=== PATIENT | female | born 1985 | race Caucasian/White ===

== ENCOUNTER 2018-11-28 17:42 | Inpatient (IN) | payer BC, OTHER ==
[~2018-11-28] VITALS: Ht 162.6 cm; Wt 97.2 kg
[~2018-11-28 17:42] MED LIST: ALBU8.5H5 INH; IBUP-1222 PO; OXYC-302 PO; PREN1TAB56 PO
[2018-11-28 18:45] LABS: BASOPHILS % (AUTO) 0 % (0-1); EOSINOPHILS # (AUTO) 0.05 x10^3/uL (0-0.4); EOSINOPHILS % (AUTO) 1 % (1-7); LYMPHOCYTES # (AUTO) 1.09 x10^3/uL (1-3.4); LYMPHOCYTES % (AUTO) 10 % (22-44); MD NO; MEAN CORPUSCULAR HEMOGLOBIN 31.8 pg (27.0-34.8); MEAN CORPUSCULAR HGB CONC 34.4 g/dL (32.4-35.8); MEAN CORPUSCULAR VOLUME 92.6 fL (80-100); MEAN PLATELET VOLUME 8.4 fL (7.4-10.4); MONOCYTES # (AUTO) 1.22 x10^3/uL (0.2-0.8); MONOCYTES % (AUTO) 11 % (2-9); NEUTROPHILS # (AUTO) 8.38 x10^3/uL (1.8-6.8); NEUTROPHILS % (AUTO) 78 % (42-75); PLATELET COUNT 234 x10^3/uL (130-400); RED BLOOD COUNT 4.47 x10^6/uL (3.82-5.3)
[2018-11-28] MEDS ORDERED: SUMA25TA3 PO (18:45)
--- NOTE | 2018-11-28 18:45 | NUR ---
PT HERE FOR RLQ PAIN WITH N/V SINCE SATURDAY. UA SENT TO LAB. VSS BUT HR ELEVATED. PIV PLACED FOR CT. CALL LIGHT IN REACH
[2018-11-28 18:51] LABS: ANION GAP 9 mmol/L (5-15); CALCIUM 8.3 mg/dL (8.5-10.1); CHLORIDE 106 mmol/L (98-107); CREATININE 0.52 mg/dL (0.55-1.02)
[2018-11-28 18:52] LABS: ALANINE AMINOTRANSFERASE 22 U/L (12-78); ALBUMIN 3.3 g/dL (3.4-5.0)
--- NOTE | 2018-11-28 18:52 | NUR ---
REPORT RECEIVED FROM AUSTYN LÓPEZ.
[2018-11-28 18:54] LABS: MICROSCOPIC NOT IND
[2018-11-28 18:56] LABS: ALKALINE PHOSPHATASE 54 U/L (45-117); BILIRUBIN,TOTAL 0.7 mg/dL (0.2-1.0); TOTAL PROTEIN 7.2 g/dL (6.4-8.2)
[2018-11-28 19:07] LABS: CULTURE INDICATED? NO
--- NOTE | 2018-11-28 19:46 | NUR ---
PT BACK TO ROOM FROM CT. PT DENIES ANY NEEDS AND CONCERNS AT THIS TIME.
[2018-11-28] MEDS ORDERED: CIPROFLOXACIN/PMX 400MG/200ML 200 ML ONE (20:22)
[2018-11-28] MEDS ORDERED: METRONIDAZOLE PMX 500MG/100ML 100 ML ONE (20:22)
[2018-11-28] MEDS ORDERED: CIPROFLOXACIN/PMX 400MG/200ML 200 ML IV ONE (20:30)
[2018-11-28] MEDS ORDERED: METRONIDAZOLE PMX 500MG/100ML 100 ML IV ONE (20:30)
--- NOTE | 2018-11-28 20:30 | NUR ---
ABX INFUSING AT THIS TIME. PT TOLERATED WELL.
[2018-11-28] MEDS ORDERED: SODIUM CHLORIDE 0.9% 1,000 ML IV ONE (21:11)
[2018-11-28] MEDS ORDERED: ONDANSETRON 2MG/ML, 2ML IVPush PRN ×2 (21:30→23:30)
[2018-11-28] MEDS ORDERED: MORPHINE SULFATE 4 MG/ML, 1ML IVPush PRN (21:30)
--- NOTE | 2018-11-28 21:45 | NUR ---
MS INFUSING AT THIS TIME. PT TOLERATED WELL.
--- NOTE | 2018-11-28 21:50 | NUR ---
REPORT GIVEN TO ROCIO LÓPEZ. ALL QUESTIONS ANSWERED.
[2018-11-28] MEDS ORDERED: POTASSIUM CHLORIDE 20 MEQ TAB.ER.PRT PO ONE (23:30)
[2018-11-28] MEDS ORDERED: LIDODERM 5% PATCH TD PRN (23:30)
[2018-11-28] MEDS ORDERED: ACETAMINOPHEN 325 MG TABLET PO PRN (23:30)
[2018-11-28] MEDS ORDERED: BISACODYL 10 MG SUPP PR PRN (23:30)
[2018-11-28] MEDS ORDERED: LORazepam 2 MG/ML, 1ML IVPush ONE (23:30)
[2018-11-28] MEDS ORDERED: ENALAPRILAT 1.25 MG/ML, 2ML IVPush PRN (23:30)
[2018-11-28] MEDS: METRONIDAZOLE PMX 500MG/100ML 100 ML IV SCH (23:59)
[2018-11-29 00:07] VITALS: BP 108/75
[2018-11-29 02:35] VITALS: BP 100/68
[2018-11-29 05:29] LABS: BASOPHILS # (AUTO) 0.01 x10^3/uL (0-0.1); BASOPHILS % (AUTO) 0 % (0-1); EOSINOPHILS % (AUTO) 1 % (1-7); LYMPHOCYTES # (AUTO) 1.41 x10^3/uL (1-3.4); LYMPHOCYTES % (AUTO) 15 % (22-44); MD NO; MEAN CORPUSCULAR HEMOGLOBIN 30.8 pg (27.0-34.8); MEAN CORPUSCULAR HGB CONC 33.4 g/dL (32.4-35.8); MEAN CORPUSCULAR VOLUME 92.1 fL (80-100); MEAN PLATELET VOLUME 8.1 fL (7.4-10.4); MONOCYTES % (AUTO) 12 % (2-9); NEUTROPHILS # (AUTO) 6.77 x10^3/uL (1.8-6.8); NEUTROPHILS % (AUTO) 72 % (42-75); PLATELET COUNT 211 x10^3/uL (130-400); RED BLOOD COUNT 4.18 x10^6/uL (3.82-5.3); RED CELL DISTRIBUTION WIDTH 13.3 % (9.6-15.2)
[2018-11-29] MEDS: METRONIDAZOLE PMX 500MG/100ML 100 ML IV SCH ×4 (05:37→23:31)
[2018-11-29 05:47] LABS: CHLORIDE 107 mmol/L (98-107)
[2018-11-29 05:55] LABS: ANION GAP 7 mmol/L (5-15); CREATININE 0.62 mg/dL (0.55-1.02)
[2018-11-29] MEDS ORDERED: OMNIPAQUE 350 MG/ML, 100ML BOTTLE ONE (06:43)
[2018-11-29 06:45] VITALS: BP 102/69
[2018-11-29] MEDS: CIPROFLOXACIN/PMX 400MG/200ML 200 ML IV SCH ×2 (07:38→20:13)
[2018-11-29] MEDS ORDERED: SUMATRIPTAN 25 MG TABLET PO SCH (09:00)
[2018-11-29] MEDS ORDERED: SUMATRIPTAN 25 MG TABLET PO PRN (12:00)
[2018-11-29 12:35] VITALS: BP 106/71
[2018-11-29 19:40] VITALS: BP 99/64
[2018-11-29] MEDS: TEMAZEPAM 15 MG CAPSULE PO PRN (22:11)
[2018-11-30 00:49] VITALS: BP 119/66
[2018-11-30] MEDS: METRONIDAZOLE PMX 500MG/100ML 100 ML IV SCH ×4 (05:44→23:40)
[2018-11-30 07:19] VITALS: BP 111/72
[2018-11-30] MEDS: CIPROFLOXACIN/PMX 400MG/200ML 200 ML IV SCH ×2 (08:00→19:49)
[2018-11-30 14:52] VITALS: BP 131/79
[2018-11-30 19:14] VITALS: BP 106/69
[2018-11-30] MEDS ORDERED: IBUPROFEN 200 MG TABLET PO PRN (20:00)
[2018-11-30] MEDS: TEMAZEPAM 15 MG CAPSULE PO PRN (22:11)
[2018-12-01 01:10] VITALS: BP 100/64
[2018-12-01] MEDS: METRONIDAZOLE PMX 500MG/100ML 100 ML IV SCH (05:30)
[2018-12-01 07:40] VITALS: BP 115/76
[2018-12-01] MEDS: CIPROFLOXACIN/PMX 400MG/200ML 200 ML IV SCH (08:48)
[2018-12-01] MEDS ORDERED: METR-90 PO (08:55)
[2018-12-01] MEDS ORDERED: CIPR250T27 PO (08:55)
== END 2018-12-01 10:19 | disposition home or self-care (01) | DRG 392 ==
LOC: ED 18:59 → EDIP 21:11 → 3NE 21:55 → DCLOUNGE 12-01 10:10
PROVIDERS: ADMIT Internal Medicine; ATTEND Internal Medicine
DX: K57.32 Diverticulitis of large intestine without perforation or abscess without bleeding (principal); E87.6 Hypokalemia; E66.01 Morbid (severe) obesity due to excess calories; G43.909 Migraine, unspecified, not intractable, without status migrainosus; D72.829 Elevated white blood cell count, unspecified; F41.9 Anxiety disorder, unspecified; N83.202 Unspecified ovarian cyst, left side; Z68.36 Body mass index [BMI] 36.0-36.9, adult
CPT/HCPCS: 36415; 74177; 80048; 80053; 81003; 83605; 83690; 84145; 84702; 85025; 87040; 96365; G0378; J0744; Q9967; J2060; J7030